=== PATIENT | male | born 1970 | race Caucasian/White ===

== ENCOUNTER → 2016-10-30 | Outpatient (CLI) | payer OTHER ==
[2016-10-30 11:41] LABS: CREATININE, URINE 83.3 MG/DL (15-500)
[2016-10-30 12:30] LABS: HEMOGLOBIN A1C 6.94 % (4.2-6.0)
== END ==
LOC: MOB LAB 10:17
PROVIDERS: ATTEND Nurse Practitioner Family
DX: E11.9 Type 2 diabetes mellitus without complications (principal)
CPT/HCPCS: 82043; 83036